=== PATIENT | female | born 2000 | race Caucasian/White ===

== ENCOUNTER 2021-10-02 19:38 | Emergency (ER) | payer BC ==
[2021-10-02] MEDS ORDERED: Lidocaine 1% PF 5 ML VIAL ONE (20:33)
[2021-10-02] MEDS ORDERED: Bacitracin 1 PK ONE (21:13)
== END 2021-10-02 21:25 | disposition home or self-care (01) ==
LOC: ERS 19:38
DX: S61.215A Laceration without foreign body of left ring finger without damage to nail, initial encounter (principal); W25.XXXA Contact with sharp glass, initial encounter
CPT/HCPCS: 12001